=== PATIENT | female | born 1970 | race Two or more races ===

== ENCOUNTER 2024-03-14 06:55 | Outpatient (CLI) | payer OTHER ==
[2024-03-14 08:01] LABS: HEMATOCRIT 40.2 % (36.0-45.00); MEAN CELL VOLUME 85.9 fL (80.00-100.00); MEAN CORPUSCULAR HEMOGLOBIN 29.9 pg (27.00-32.0); MEAN CORPUSCULAR HGB CONC 34.8 g/dl (32.0-36.0); PLATELET COUNT 212 K/uL (150-450); RED BLOOD COUNT 4.67 M/uL (4.00-6.00); RED CELL DISTRIBUTION WIDTH 14.3 % (11.5-14.5)
[2024-03-14 08:07] LABS: PH,URINE 6.5 (5.0-8.0); URINE APPEARANCE Clear; URINE BILIRRUBIN Negative (NEGATIVE); URINE BLOOD Negative; URINE COLOR Yellow; URINE GLUCOSE Negative (NEGATIVE); URINE KETONE Negative (NEGATIVE); URINE LEUKOCYTE Negative; URINE NITRATE Negative; URINE PROTEIN Negative (NEGATIVE); URINE UROBILINOGEN 0.2 E.U./dl
[2024-03-14 08:11] LABS: URINE BACTERIA 76.8 uL (0.0-1933); URINE EPITHELIAL CELLS 4.7 uL (0.0-38.8); URINE RBC 7.3 uL (0.0-20.8)
[2024-03-14 08:13] LABS: URINE WBC 1.3 uL (0.0-23.2)
[2024-03-14 08:24] LABS: COL EPI 111 SECONDS (82-175)
[2024-03-14 08:47] LABS: INR 0.94; PARTIAL THROMBOPLASTIN TIME 32.8 SECONDS (22.0-34.0); PROTHROMBIN TIME 10.3 SECONDS (9.0-11.5)
[2024-03-14 09:00] LABS: ALBUMIN 3.6 gm/dL (3.4-5.0); BILIRUBIN TOTAL 0.77 mg/dL (0.3-1.2); CALCIUM 9.1 mg/dL (8.5-10.1); CREATININE SERUM 0.59 mg/dL (0.55-1.02); GFR 106.62; GLOBULINA 3.6 G/DL (2.4-3.5); POTASSIUM 4.39 mEq/L (3.5-5.1); TOTAL PROTEIN 7.2 gm/dL (6.4-8.2)
== END 2024-03-14 07:16 | disposition home or self-care (01) ==
LOC: RAD 06:55
PROVIDERS: ATTEND Orthopaedic Surgery
DX: D64.9 Anemia, unspecified (principal); E88.89 Other specified metabolic disorders; D68.8 Other specified coagulation defects; N39.0 Urinary tract infection, site not specified; Z22.322 Carrier or suspected carrier of Methicillin resistant Staphylococcus aureus; Z76.89 Persons encountering health services in other specified circumstances; I10 Essential (primary) hypertension

== ENCOUNTER 2024-04-05 06:42 | Day surgery (SDC) | payer OTHER ==
[~2024-04-05 06:42] MED LIST: CALCIUM 600+D1 EAC1 PO; LEVOTHYROXINE25 MCG PO; SYNTHROID200 MCG PO
[2024-04-05] MEDS ORDERED: VANCOMYCIN HCL 1,000 MG VIAL IR ONE (09:45)
[2024-04-05] MEDS ORDERED: CEFAZOLIN SODIUM 1,000 MG VIAL IV ONE (09:45)
[2024-04-05] MEDS ORDERED: EPINEPHRINE HCL/PF 1 MG/ML AMPUL IR ONE ×2 (09:45→11:00)
[2024-04-05] MEDS ORDERED: ISOPROPYL ALCOHOL 30 ML OUNCE TOP ONE (11:00)
[2024-04-05] MEDS ORDERED: SUGAMMADEX SODIUM 200 MG/2 ML VIAL IV ONE (12:15)
[2024-04-05] MEDS ORDERED: MORPHINE SULFATE 4 MG/ML VIAL IV ONE ×2 (12:40→13:10)
[2024-04-05] MEDS ORDERED: ONDANSETRON HCL 2 MG/ML VIAL IV ONE ×3 (15:15→16:40)
[2024-04-05] MEDS ORDERED: DEXAMETHASONE SODIUM PHOSPHATE 4 MG/ML VIAL IV ONE (17:10)
== END 2024-04-05 18:10 | disposition home or self-care (01) ==
LOC: CIR.AMB 06:42
PROVIDERS: ATTEND Orthopaedic Surgery
DX: M75.111 Incomplete rotator cuff tear or rupture of right shoulder, not specified as traumatic (principal); M24.811 Other specific joint derangements of right shoulder, not elsewhere classified; Z88.0 Allergy status to penicillin; Z88.6 Allergy status to analgesic agent